=== PATIENT | female | born 1975 | race Caucasian/White ===

== ENCOUNTER 2016-11-17 23:32 | Emergency (ER) | payer MEDICAID ==
[~2016-11-17] VITALS: Ht 157.5 cm; Wt 67.0 kg
[~2016-11-17 23:32] MED LIST: PREN-29 PO
[2016-11-17 23:55] VITALS: Ht 157.5 cm; Wt 67.0 kg
[2016-11-18] MEDS ORDERED: HYDR-906 PO (02:01)
[2016-11-18 02:11] VITALS: BP 123/72; PULSE 70; RESP 14; TEMP 98.2
--- NOTE | 2016-11-19 15:35 | ERD ---
ER Documentation Chief Complaint Date/Time DATE: 11/19/16 TIME: 15:33 Chief Complaint L upper molar pain x 1 day HPI Patient was seen and examined on 11/17/16. patient is a 41-year-old female who presents to the ED with left upper molar pain 1 week. Patient states that she is in need of a root canal and is waiting to get authorization for a dentist. However she states that the pain is increasing. She is currently on amoxicillin and she started this yesterday which was given by her primary care doctor. She is not taking any medications for pain. Denies fever or chills. Denies eye pain or blurry vision. Denies headache or dizziness. Denies drainage. No bleeding. ROS All systems reviewed and are negative except as per history of present illness. Medications Home Meds Active Scripts Hydrocodone/Acetaminophen ([place] 5-325 Tablet) 1 Each Tablet, 1 TAB PO Q6H Y for PAIN, #7 TAB Prov:SALOMÓN KIRKPATRICK PA-C 11/18/16 Reported Medications Vit-Fe Fumarate-FA* (Tito Tablet*) 1 Tab Tablet, 1 TAB PO AC DINNER, TAB 10/20/14 Allergies Allergies: Coded Allergies: No Known Allergy (Unverified , 10/20/14) PMhx/Soc Medical and Surgical Hx: pt denies Medical Hx History of Surgery: Yes (c sections) Anesthesia Reaction: No Hx Alcohol Use: No Hx Substance Use: No Hx Tobacco Use: No Physical Exam Vitals Physical Exam GENERAL: Well-developed, well-nourished female. Appears in no acute distress. HEAD: Normocephalic, atraumatic. EYES: Pupils are equally reactive bilaterally. EOMs grossly intact. No conjunctival erythema. ENT: Moist mucous membranes. No uvula deviation. No kissing tonsils. No exudates. NECK: Supple. No lymphadenopathy or thyromegaly. No meningismus. negative kernig. negative brudinski. LUNG: Clear to auscultation bilaterally. No rhonchi, wheezing, rales or coarse breath sounds. HEART: Regular rate and rhythm. No murmurs, rubs or gallops. SKIN: Normal color. Warm and dry. No rashes or lesions. Capillary refill < 2 seconds Procedures/MDM ER COURSE: I kept the patient and/or family informed of laboratory and diagnostic imaging results throughout the emergency room course. MEDICAL DECISION MAKING: This is a 41-year-old who presents with left molar tooth pain. Vital signs were reviewed. Patient is afebrile. Patient is not hypoxic. Patient is not toxic or ill-appearing. Patient has dental pain of unknown etiology. Low suspicion for cellulitis, abscess. Low suspicion for necrotizing fasciitis, SJS, toxic epidermal necrolysis, Kawasaki, erythema multiforme, gangrene, scarlet fever, meningococcemia, sepsis, anaphylaxis, sepsis, deep space infection, or foreign body. DISCHARGE: At this time, patient is stable for discharge and outpatient management with no new complaints during the ER course. Patient was sent home with [place] for pain and to continue the amoxicillin as prescribed. Advised patient to follow-up with dentist this week for further evaluation.. Patient will be discharged home with instructions to recheck for new or worsening symptoms such as fever, nausea , weakness, LOC and to follow up with primary care in the next 1-2 days. Patient was advised to return to the ER for any new or worsening symptoms. Plan was discussed and patient and/or family understands and agrees. Home instructions were given. Departure Diagnosis: Primary Impression: Toothache Condition: Stable Patient Instructions: Dental Pain Referrals: NO PRIMARY,CARE PHYSICIAN (PCP) Additional Instructions: Llame al doctor YESI y giorgi jovi SCOTT PARA DENTRO DE 1-2 COLON.Dgale a la secretaria que nosotros le instruimos hacer esta scott.Avise o llame si [place] condicin se empeora antes de la scott. Regresa aqui si peor o no mejor. SALOMÓN KIRKPATRICK PA-C Nov 19, 2016 15:35 NO PRIMARY,CARE PHYSICIAN (PCP) Additional Instructions: Llame al doctor YESI y giorgi jovi SCOTT PARA DENTRO DE 1-2 COLON.Dgale a la secretaria que nosotros le instruimos hacer esta scott.Avise o llame si [place] condicin se empeora antes de la scott. Regresa aqui si peor o no mejor. SALOMÓN KIRKPATRICK PA-C Nov 19, 2016 15:35
== END 2016-11-18 02:24 | disposition home or self-care (01) ==
LOC: FTE 23:32
DX: K08.89 Other specified disorders of teeth and supporting structures (principal)
CPT/HCPCS: 99283